=== PATIENT | male | born 2000 | race Hispanic/Latino ===

== ENCOUNTER 2021-12-19 02:30 | Inpatient (IN) | payer BC ==
[2021-12-19] MEDS ORDERED: Rocuronium Bromide 10 MG/ML (10ML VIAL) ONE (02:41)
[2021-12-19] MEDS ORDERED: Ondansetron PF 4 MG/2 ML Vial ONE (02:43)
[2021-12-19] MEDS ORDERED: Fentanyl 100 MCG/2 ML VIAL ONE (02:49)
[2021-12-19 02:54] LABS: #Basophils 0.2 thou/uL (0.0-0.2); #Eosinphils 0.1 thou/uL (0.0-0.7); #Lymphocytes 2.2 thou/uL (1.20-3.40); #Monocytes 0.4 thou/uL (0.11-0.59); #Neutrophils 5.3 thou/uL (1.40-6.50); %Eosinophils 1.4 % (0.0-10.0); %Lymphocytes 26.9 % (21.0-51.0); %Monocytes 4.6 % (0.0-10.0); %Neutrophils 65.2 % (42.0-75.0); Hemoglobin 13.2 g/dL (14.0-18.0); Mean Corpuscular HGB CONC 33.5 g/dL (32.0-36.0); Mean Corpuscular Hemoglobin 30.3 pg (27.0-31.0); Mean Corpuscular Volume 90.7 fL (78.0-98.0); Platelet Count 218 thou/uL (130-400); RBC Distribution Width 11.7 % (11.5-14.5); Red Blood Cell (RBC) Count 4.36 mill/uL (4.70-6.10); White Blood Cell (WBC) Count 8.1 thou/uL (4.8-10.8)
[2021-12-19 03:00] LABS: INR-International Normal Ratio 1.2; PTT 31.6 sec (22.9-36.1); Prothrombin Time 15.7 sec (12.0-14.7)
[2021-12-19] MEDS ORDERED: Fentanyl CADD 100 ML IV SCH ×2 (03:00→04:00)
[2021-12-19 03:01] LABS: ALT (SGPT) 122 U/L (8-55); AST (SGOT) 132 U/L (5-34); Albumin 3.7 g/dL (3.5-5.0); Alkaline Phosphatase 71 U/L (40-110); Anion Gap 18 mmol/L (10-20); BUN (Urea Nitrogen) 11 mg/dL (8.9-20.6); Bilirubin, Total Less than 0.2 mg/dL (0.2-1.2); Calc. Creatinine Clearance 0 mL/min (70-130); Calcium 7.7 mg/dL (7.8-10.44); Carbon Dioxide 16 mmol/L (22-29); Chloride 109 mmol/L (98-107); Estimated GFR 84; Globulin 2.7 g/dL (2.4-3.5); Glucose 162 mg/dL (70-105); Potassium 3.2 mmol/L (3.5-5.1); Protein, Total 6.4 g/dL (6.0-8.3); Sodium 140 mmol/L (136-145)
[2021-12-19 03:03] LABS: Actual Bicarbonate (HCO3a) 16.2 mEq/L (22-28); Analyzer IN Cardio ER; Base Excess (BEa) -9.3 mEq/L (-2.0 to +3.0); CO2 Tension 34.2 mmHg (35.0-45.0); Calcium, Ionized (arterial) 1.02 mmol/L (1.12-1.30); Carboxyhemoglobin (COHb) 0.3 gm% (0.0-3.0); Hemoglobin (Hb) 13.1 g/dL (14.0-18.0); O2 Tension (PaO2), arterial 195.3 mmHg (80.0-100.0); Potassium - ABG Lab 2.95 mmol/L (3.70-5.30); pH, Arterial 7.29 (7.35-7.45)
[2021-12-19 03:04] LABS: Puncture Site RRA
[2021-12-19 03:13] LABS: Acetaminophen Less than 10.0 mcg/mL (10.0-30.0); Alcohol 261 mg/dL (Less than 10); Salicylate Less than 8.0 mg/dL (15.0-30.0)
[2021-12-19] MEDS ORDERED: Ondansetron PF 4 MG/2 ML Vial IVP PRN (03:38)
[2021-12-19] MEDS ORDERED: Dextrose 50% Abboject 50 ML SYRINGE SLOW IVP PRN (03:38)
[2021-12-19] MEDS ORDERED: Dextrose 5% in Water 1,000 ML IV PRN (03:38)
[2021-12-19] MEDS ORDERED: hydrALAZINE 20 MG/ML VIAL SLOW IVP PRN (03:38)
[2021-12-19] MEDS ORDERED: Ventilator Sedation Protocol 1 EACH FS ONE (03:43)
[2021-12-19 03:50] LABS: SARS-CoV-2 NAA Rapid Test Not Detected (NotDetected)
[2021-12-19] MEDS ORDERED: Propofol 1,000 MG/100 ML VIAL IV PRN (04:00)
[2021-12-19] MEDS ORDERED: Fentanyl BOLUS 250 ML IVPB PRN (04:00)
[2021-12-19] MEDS ORDERED: Morphine 4 MG/ML VIAL SLOW IVP PRN ×2 (04:00→09:28)
[2021-12-19] MEDS ORDERED: Propofol BOLUS 1,000 MG/100 ML VIAL IV PRN (04:00)
[2021-12-19] MEDS ORDERED: Midazolam HCl 2 mg/2 ml Vial SLOW IVP PRN (04:00)
[2021-12-19] MEDS ORDERED: DISCONTINUE PREVIOUS NARCOTIC PAIN MEDICATIONS AND BENZODIAZEPINES FS SCH (04:00)
[2021-12-19 04:01] LABS: Magnesium 2.1 mg/dL (1.6-2.6); Phosphorus 3.6 mg/dL (2.3-4.7)
[2021-12-19] MEDS ORDERED: Calcium Chloride 1 GM/10 ML Abboject SYRINGE ONE (04:11)
[2021-12-19] MEDS ORDERED: Acetaminophen 650 MG Suppository ONE (05:42)
[2021-12-19 06:26] LABS: Lactic Acid 3.5 mmol/L (0.5-2.2)
[2021-12-19] MEDS ORDERED: Lactated Ringer's 1,000 ML IV SCH (06:45)
[2021-12-19] MEDS ORDERED: Sodium Chloride 0.9% 1,000 ML IV SCH (06:45)
[2021-12-19 07:46] VITALS: BMI 24.2
[2021-12-19] MEDS: Potassium Chloride 20 MEQ in Premix Bag 1 BAG IVPB SCH ×2 (07:56→11:34)
[2021-12-19 08:08] LABS: Amphetamine Not Detected (NotDetected); Barbiturates Screen Not Detected (NotDetected); Benzodiazepine Screen Not Detected (NotDetected); Cocaine Metabolite Screen Not Detected (NotDetected); Methadone Not Detected (NotDetected); Methamphetamine Not Detected (NotDetected); Opiate Screen Not Detected (NotDetected); Oxycodone Screen Not Detected (NotDetected); Phencyclidine (PCP) Not Detected (NotDetected); THC/Cannabinoid Screen Not Detected (NotDetected); Tricyclic Screen Not Detected (NotDetected)
[2021-12-19 08:10] LABS: Bacteria/HPF None Seen HPF (None Seen); Bilirubin Negative (Negative); Blood, Urine 2+ (Negative); Clarity Clear (Clear); Glucose, Urine (Dipstick) 30 mg/dL (Negative); Ketone, Urine Trace mg/dL (Negative); Leukocyte Negative Leu/uL (Negative); Nitrite Negative (Negative); Protein, Urine (Dipstick) 30 mg/dL (Neg-Trace); RBC/HPF 0-3 HPF (0-3); Specific Gravity, Urine 1.039 (1.002-1.036); Squamous Epithelial None Seen HPF (0-3); Urobilinogen Normal mg/dL (Less than 2)
[2021-12-19] MEDS: Famotidine/PF 20 mg/2ml Vial SLOW IVP SCH ×2 (11:31→21:02)
[2021-12-19] MEDS: Acetaminophen 325 MG TAB PO SCH ×3 (11:32→23:03)
[2021-12-19] MEDS: Sodium Chloride 0.9% 1,000 ML IV SCH ×2 (13:49→18:29)
[2021-12-19] MEDS ORDERED: MD-Gastroview 120 ML BOT ONE (13:59)
[2021-12-19] MEDS ORDERED: Iopamidol 370 76% 100 ML VIAL ONE (13:59)
[2021-12-19] MEDS: Acetaminophen/Codeine 30-300mg Tablet PO PRN (23:03)
[2021-12-20] MEDS: Acetaminophen/Codeine 30-300mg Tablet PO PRN ×3 (04:51→17:42)
[2021-12-20] MEDS: Acetaminophen 325 MG TAB PO SCH ×4 (04:53→22:46)
[2021-12-20 06:16] LABS: #Lymphocytes 1.1 thou/uL (1.20-3.40); #Neutrophils 5.9 thou/uL (1.40-6.50); %Basophils 0.1 % (0.0-1.0); %Eosinophils 0.2 % (0.0-10.0); %Monocytes 12.1 % (0.0-10.0); %Neutrophils 73.5 % (42.0-75.0); Hemoglobin 11.9 g/dL (14.0-18.0); Mean Corpuscular HGB CONC 33.2 g/dL (32.0-36.0); Mean Corpuscular Hemoglobin 29.8 pg (27.0-31.0); Mean Corpuscular Volume 89.8 fL (78.0-98.0); Platelet Count 149 thou/uL (130-400); Red Blood Cell (RBC) Count 3.97 mill/uL (4.70-6.10)
[2021-12-20 06:44] LABS: Anion Gap 12 mmol/L (10-20); BUN (Urea Nitrogen) 11 mg/dL (8.9-20.6); Calc. Creatinine Clearance 137 mL/min (70-130); Calcium 8.8 mg/dL (7.8-10.44); Carbon Dioxide 25 mmol/L (22-29); Chloride 104 mmol/L (98-107); Estimated GFR 128; Glucose 118 mg/dL (70-105); Phosphorus 2.3 mg/dL (2.3-4.7); Sodium 137 mmol/L (136-145)
[2021-12-20] MEDS ORDERED: PHOS-NAK 1 PKT PACK PO SCH (07:30)
[2021-12-20] MEDS ORDERED: Morphine 4 MG/ML VIAL ONE (09:52)
[2021-12-20] MEDS ORDERED: Gabapentin 100 MG CAP PO SCH (10:00)
[2021-12-20] MEDS ORDERED: Morphine 4 MG/ML VIAL SLOW IVP SCH (10:00)
[2021-12-20] MEDS: Famotidine/PF 20 mg/2ml Vial SLOW IVP SCH (10:49)
[2021-12-20] MEDS ORDERED: tiZANidine HCl 4 MG TAB PO PRN (11:14)
[2021-12-20] MEDS: Gabapentin 300 MG CAP PO SCH ×2 (15:49→22:39)
[2021-12-20] MEDS ORDERED: Senokot 8.6 MG TAB PO SCH (22:30)
[2021-12-20] MEDS ORDERED: Polyethylene Glycol 3350 17 GM Packet PO SCH (22:30)
[2021-12-20] MEDS: Famotidine 20 MG TAB PO SCH (22:39)
[2021-12-21] MEDS: Acetaminophen/Codeine 30-300mg Tablet PO PRN ×3 (02:50→17:51)
[2021-12-21 05:36] LABS: #Lymphocytes 1.1 thou/uL (1.20-3.40); #Monocytes 0.6 thou/uL (0.11-0.59); #Neutrophils 4.7 thou/uL (1.40-6.50); %Eosinophils 0.7 % (0.0-10.0); %Lymphocytes 16.4 % (21.0-51.0); %Neutrophils 73.9 % (42.0-75.0); Hemoglobin 11.4 g/dL (14.0-18.0); Mean Corpuscular HGB CONC 34.2 g/dL (32.0-36.0); Mean Corpuscular Hemoglobin 30.6 pg (27.0-31.0); Mean Corpuscular Volume 89.3 fL (78.0-98.0); Platelet Count 130 thou/uL (130-400); RBC Distribution Width 11.8 % (11.5-14.5); Red Blood Cell (RBC) Count 3.74 mill/uL (4.70-6.10); White Blood Cell (WBC) Count 6.4 thou/uL (4.8-10.8)
[2021-12-21] MEDS: Acetaminophen 325 MG TAB PO SCH ×3 (05:36→17:49)
[2021-12-21] MEDS ORDERED: Senokot 8.6 MG TAB PO SCH (09:00)
[2021-12-21] MEDS ORDERED: Bisacodyl 10 MG SUPP PR PRN (09:20)
[2021-12-21] MEDS: Famotidine 20 MG TAB PO SCH ×2 (10:00→21:09)
[2021-12-21] MEDS: Senokot S 8.6-50 MG TAB PO SCH ×2 (10:01→21:09)
[2021-12-21] MEDS: Gabapentin 300 MG CAP PO SCH ×3 (10:01→21:08)
[2021-12-21] MEDS: Polyethylene Glycol 3350 17 GM Packet PO SCH (10:02)
[2021-12-22] MEDS: Acetaminophen 325 MG TAB PO SCH ×3 (00:49→11:28)
[2021-12-22] MEDS: Acetaminophen/Codeine 30-300mg Tablet PO PRN ×2 (00:50→05:52)
[2021-12-22 05:32] VITALS: BP 149/76; TEMP 97.7
[2021-12-22] MEDS: Polyethylene Glycol 3350 17 GM Packet PO SCH (08:35)
[2021-12-22] MEDS: Senokot S 8.6-50 MG TAB PO SCH (08:36)
[2021-12-22] MEDS: Gabapentin 300 MG CAP PO SCH (08:36)
[2021-12-22] MEDS: Famotidine 20 MG TAB PO SCH (08:36)
== END 2021-12-22 13:25 | disposition home or self-care (01) | DRG 963 ==
LOC: ERS 02:30 → CCU 02:57 → SJJU 18:11
PROVIDERS: ADMIT Specialist; ATTEND Surgery
PROC: 5A1935Z Respiratory Ventilation, Less than 24 Consecutive Hours (ICD-10-PCS; principal; 2021-12-19)
PROC: 0BH18EZ Insertion of Endotracheal Airway into Trachea, Via Natural or Artificial Opening Endoscopic (ICD-10-PCS; 2021-12-19)
PROC: 0HQ0XZZ Repair Scalp Skin, External Approach (ICD-10-PCS; 2021-12-19)
PROC: 0HQ8XZZ Repair Buttock Skin, External Approach (ICD-10-PCS; 2021-12-19)
PROC: 0D9670Z Drainage of Stomach with Drainage Device, Via Natural or Artificial Opening (ICD-10-PCS; 2021-12-19)
DX: S06.6X0A Traumatic subarachnoid hemorrhage without loss of consciousness, initial encounter (principal); J96.00 Acute respiratory failure, unspecified whether with hypoxia or hypercapnia; S06.5X0A Traumatic subdural hemorrhage without loss of consciousness, initial encounter; S32.10XA Unspecified fracture of sacrum, initial encounter for closed fracture; S22.089A Unspecified fracture of T11-T12 vertebra, initial encounter for closed fracture; S22.20XA Unspecified fracture of sternum, initial encounter for closed fracture; S32.011A Stable burst fracture of first lumbar vertebra, initial encounter for closed fracture; E87.2 Acidosis; Z20.822 Contact with and (suspected) exposure to COVID-19; F10.129 Alcohol abuse with intoxication, unspecified; S01.01XA Laceration without foreign body of scalp, initial encounter; S31.811A Laceration without foreign body of right buttock, initial encounter; E87.6 Hypokalemia; R40.2432 Glasgow coma scale score 3-8, at arrival to emergency department; Z78.1 Physical restraint status; Z23 Encounter for immunization
CPT/HCPCS: 36415; 36416; 36430; 36600; 70450; 71045; 71260; 72125; 72170; 74177; 80048; 80053; 80306; 80307; 81003; 81015; 82805; 83605; 83735; 84100; 85025; 85610; 85730; 86850; 86900; 86901; 94002; 94760; G0390; J2270; J2405; J2704; J3010; J3480; Q9963; Q9967; S0028; U0002